=== PATIENT | female | born 1955 | race Caucasian/White ===

== ENCOUNTER 2018-04-11 16:45 | Emergency (ER) | payer MEDICARE, OTHER ==
[~2018-04-11] VITALS: Ht 160 cm; Wt 108.9 kg
[2018-04-11] MEDS ORDERED: MODA200 (18:58)
[2018-04-11] MEDS ORDERED: ARIP20 (18:58)
[2018-04-11] MEDS ORDERED: DULO60 (18:58)
[2018-04-11] MEDS ORDERED: PROP10 (18:58)
[2018-04-11] MEDS ORDERED: ASPI81CH (18:59)
[2018-04-11] MEDS ORDERED: MELO7.5 (18:59)
[2018-04-11] MEDS ORDERED: ABAT250V (18:59)
[2018-04-11] MEDS ORDERED: Percocet 5-3251 EACH PO (20:39)
== END 2018-04-11 20:57 | disposition home or self-care (01) ==
LOC: ER 16:45
DX: S52.531A Colles' fracture of right radius, initial encounter for closed fracture (principal); W19.XXXA Unspecified fall, initial encounter
CPT/HCPCS: 25605; 73110; 76000; 96374; 99152; 99283-25; J1170; J2405; J7030

== ENCOUNTER 2018-04-20 11:11 | Day surgery (SDC) | payer MEDICARE, OTHER ==
[~2018-04-20] VITALS: Ht 160 cm; Wt 112.0 kg
[~2018-04-20 11:11] MED LIST: ABAT250V; ARIP20 PO; ARIPIPRAZOLE20 MG PO; ASPI81CH PO; AZELASTINE137 MCG/0.; CHOL10002 PO; DULO60 PO; MELO7.5 PO; METF500C PO; MODA200 PO; PRAMIPEXOLE DI0.5 MG PO; PROP10 PO; Percocet 5-3251 EACH PO; SIMV10 PO
== END 2018-04-20 16:45 | disposition home or self-care (01) ==
LOC: ORSCMMR 11:11 → ORD 14:30 → ORSCMMR 14:30
PROVIDERS: Orthopaedic Surgery
PROC: 0PSH04Z Reposition Right Radius with Internal Fixation Device, Open Approach (ICD-10-PCS; principal; 2018-04-20 12:30)
DX: S52.561A Barton's fracture of right radius, initial encounter for closed fracture (principal); E11.9 Type 2 diabetes mellitus without complications; G47.33 Obstructive sleep apnea (adult) (pediatric); E66.01 Morbid (severe) obesity due to excess calories; Z68.41 Body mass index [BMI] 40.0-44.9, adult; Z79.899 Other long term (current) drug therapy
CPT/HCPCS: 82947; C1713; J0690; J1100; J1885; J2250; J2405; J3010; J7120

== ENCOUNTER → 2023-01-06 | Outpatient (CLI) | payer MEDICARE, OTHER ==
[2023-01-06 14:46] LABS: Creatinine, Urine Random 36.9 mg/dL (27.00-270.00); Microalb/Creat Ratio UR, Rand 13.658 mg/g (0.000-30.000); Microalbumin, Random Urine 5.04 mg/L (0.000-20.000)
== END ==
LOC: LAB SHORT 06:51 → LAB 06:51
PROVIDERS: Physician Assistant Medical
DX: E11.9 Type 2 diabetes mellitus without complications (principal); F41.9 Anxiety disorder, unspecified; I10 Essential (primary) hypertension; F51.8 Other sleep disorders not due to a substance or known physiological condition; G24.01 Drug induced subacute dyskinesia; F32.89 Other specified depressive episodes
CPT/HCPCS: 82043; 82570